=== PATIENT | female | born 1950 | race African-American/Black ===

== ENCOUNTER 2024-07-04 11:18 | Emergency (ER) | payer OTHER ==
[~2024-07-04] VITALS: Ht 165.1 cm; Wt 108.4 kg
[2024-07-04 11:53] VITALS: O2SAT 95
[2024-07-04 12:29] LABS: BASOPHILS % 0.3 % (0.0-2.0); EOSINOPHILS % 3.1 % (0.0-5.0); HEMATOCRIT. 38.5 % (36.0-48.0); HEMOGLOBIN. 13.3 g/dL (12.0-16.0); LYMPHOCYTES % 32.9 % (20.0-50.0); MEAN CORPUSCULAR HEMOGLOBIN 32.3 pg (28.0-32.0); MEAN CORPUSCULAR HGB CONC 34.5 g/dL (31.0-37.0); MEAN CORPUSCULAR VOLUME 93.5 fL (81.0-99.0); MEAN PLATELET VOLUME 8.5 fl (7.4-10.4); MONOCYTES % 7.9 % (2.0-8.0); NEUTROPHILS % 55.8 % (40.0-76.0); PLATELET 228 x1000/uL (130-400); RED BLOOD CELL COUNT 4.12 mill/uL (4.2-5.4); RED CELL DISTRIBUTION WIDTH 13.4 % (11.6-14.6); WHITE BLOOD COUNT 7.8 x1000/uL (4.5-11.0)
[2024-07-04 12:38] LABS: CHLORIDE 106 mEq/L (98-107); POTASSIUM 3.8 mEq/L (3.5-5.1); SODIUM 142 mEq/L (136-145)
[2024-07-04 12:39] LABS: CARBON DIOXIDE 32 mEq/L (21-32)
[2024-07-04 12:40] LABS: CALCIUM 10.2 mg/dL (8.7-10.4)
[2024-07-04 12:41] LABS: PROTHROMBIN TIME 10.9 sec (9.6-11.0)
[2024-07-04 12:45] LABS: CREATININE 0.8 mg/dL (0.6-1.0); GLUCOSE 113 mg/dL (70-105); UREA NITROGEN BLOOD 13 mg/dL (9-23)
[2024-07-04] MEDS: PREDNISONE 20MG TABLET PO ONE (12:45)
[2024-07-04 12:57] VITALS: PULSE 72; RESP 20
[2024-07-04] MEDS: IPRATROPIUM/ALBUTEROL 0.5-3(2.5)MG/3ML NEB HHN ONE (12:57)
[2024-07-04 14:18] LABS: TROPONIN I HIGH SENSITIVITY < 4 ng/L (3.0-34)
[2024-07-04] MEDS ORDERED: P50 MT (14:29)
[2024-07-04] MEDS ORDERED: ALBU18HF2 IH (14:29)
[2024-07-04] MEDS ORDERED: GUAI-450 MT (14:29)
[2024-07-04 14:42] VITALS: BP 144/87; PULSE 68; RESP 20; TEMP 36.78072; O2SAT 95
== END 2024-07-04 14:46 | disposition home or self-care (01) ==
LOC: ER 11:18
DX: J45.909 Unspecified asthma, uncomplicated (principal); E11.9 Type 2 diabetes mellitus without complications; I10 Essential (primary) hypertension; Z86.39 Personal history of other endocrine, nutritional and metabolic disease; Z90.710 Acquired absence of both cervix and uterus
CPT/HCPCS: 99285; 71045; 80048; 83880; 85025; 85610; 84484; 36415; 94640; 93005; J7512

== ENCOUNTER 2024-07-22 09:45 | Emergency (ER) | payer OTHER ==
[~2024-07-22] VITALS: Ht 165.1 cm; Wt 108.4 kg
[~2024-07-22 09:45] MED LIST: ALBU18HF2 IH; GUAI-450 MT; P50 MT
[2024-07-22 09:59] VITALS: BP 116/62; O2SAT 95
[2024-07-22] MEDS: IPRATROPIUM BROMIDE (0.02%) 0.5MG/2.5ML NEB HHN STA (11:08)
[2024-07-22 11:09] VITALS: PULSE 81; RESP 18
[2024-07-22] MEDS: ALBUTEROL (0.083%) 2.5MG/3ML NEB HHN STA (11:09)
[2024-07-22] MEDS: ALBUTEROL (0.083%) 2.5MG/3ML NEB HHN SCH (11:09)
[2024-07-22] MEDS: PREDNISONE 20MG TABLET PO STA (11:40)
[2024-07-22 11:45] VITALS: PULSE 91; RESP 16
[2024-07-22 12:12] VITALS: PULSE 76; RESP 16
[2024-07-22] MEDS ORDERED: BECL10.62 INH (12:40)
[2024-07-22 13:00] VITALS: PULSE 72; RESP 16; TEMP 36.89184; O2SAT 99
== END 2024-07-22 13:00 | disposition home or self-care (01) ==
LOC: ER 09:45
DX: J45.909 Unspecified asthma, uncomplicated (principal); E11.9 Type 2 diabetes mellitus without complications; I10 Essential (primary) hypertension; Z90.710 Acquired absence of both cervix and uterus; Z86.39 Personal history of other endocrine, nutritional and metabolic disease
CPT/HCPCS: 99285; 71045; 94640; J7512